=== PATIENT | female | born 1975 | race Caucasian/White ===

== ENCOUNTER 2019-02-12 13:11 | Emergency (ER) | payer SELFPAY ==
[2019-02-12 13:12] VITALS: BP 98/82; PULSE 75; RESP 17; TEMP 36.6; O2SAT 100; BMI 34.0
--- NOTE | 2019-02-12 14:41 | ED.VIS.GEN ---
History of Present Illness Chief Complaint: Back Narrative: 44-year-old female with a history of the chronic back pain presenting with a flareup of her chronic pain. She was going down steps yesterday and essentially slipped but did not actually strike her back, she just twisted and felt a pulling sensation in the left lumbar region. It has been radiating down her left buttock. She has a history of sciatica and this feels similar. She denies any direct trauma to the area. She denies bowel bladder dysfunction. Denies groin paresthesias. Denies lower extremity weakness. Onset of pain was sudden. Severity is moderate. It is worse with certain positions and bending forward. Past Medical History Primary Care Physician: Care Physician,No Primary [Primary Care Provider] - Prior records reviewed: Yes Review of Systems General: Denies: Chills, Fever, Sweats Eyes: Denies: Visual changes - bilaterally, Diplopia ENT: Denies: Rhinorrhea, Sore throat Cardiovascular: Denies: Chest pain, Palpitations Respiratory: Denies: Dyspnea, Cough, Dyspnea on exertion Gastrointestinal: Denies: Abdominal pain, Nausea, Vomiting, Diarrhea, Melena, Hematochezia Genitourinary: Denies: Dysuria, Hematuria, Frequency Musculoskeletal: Reports: Back pain. Denies: Extremity Pain Skin: Denies: Rash, Wounds Neurological: Denies: Headache, Weakness, Numbness Physical Exam Vital Signs/Narrative: Vital Signs Temp Pulse Resp BP Pulse Ox 02/12/19 13:12 97.9 F 75 17 98/82 H 100 General: Well nourished, Well developed, No Acute Distress Head: Normocephalic, Atraumatic Eyes: Perrl, EOMI ENT: Moist mucous membranes, No rhinorrhea Neck: Supple, Nontender Cardiovascular: Regular rate, Regular rhythm, No murmurs Respiratory: No distress, CTA bilaterally, Chest nontender Abdomen: Soft, Nontender, Nondistended, Normal bowel sounds Back: Normal Inspection, - - She does have mild paraspinal lumbar tenderness on the left. No midline tenderness, erythema, or fluctuance. Extremities: Nontender, No edema Skin: Normal color, No rash Neurological: Alert, Oriented x3, Cranial nerves II-XII grossly intact, Normal Strength, Normal Sensation Psychological: Normal affect, Normal Mood Diagnostic/Tx/Re-eval - Medical Decision Making She has no midline tenderness, erythema, or fluctuance to suggest paraspinal or epidural abscess. No abdominal tenderness. No lower extremity weakness. No groin paresthesias. Reflexes are normal and symmetric. Negative Babinski's. No clonus. She can ambulate without difficulty. Her blood pressure was slightly low on arrival but she denies feeling lightheaded and denies symptoms of infection. She was medicated here and feels much better. Red flag symptoms were explained. She was discharged in stable condition. ED Disposition - Plan for ED Patient: Disposition: Home or Assisted Living Instructions: BACK PAIN (Acute or Chronic) Prescriptions: MethylPREDNISolone DosePak [Medrol DosePak] 4 mg PO UD #1 box Naproxen [Naprosyn] 500 mg PO BID #14 tablet Tizanidine HCl [Zanaflex] 4 mg PO TID #20 tablet Referrals: Care Physician,No Primary [Primary Care Provider] -
[2019-02-12] MEDS: morphine 8 MG/ML Syringe 6 MG IM (14:51)
== END 2019-02-12 15:28 | disposition home or self-care (01) ==
LOC: ED 15:19
PROVIDERS: Emergency Provider Emergency Medicine
DX: M54.5 Low back pain (principal); G89.29 Other chronic pain
CPT/HCPCS: 96372; 99282

== ENCOUNTER 2023-06-22 21:13 | Emergency (ER) | payer OTHER, SELFPAY ==
[2023-06-22 21:14] VITALS: BP 136/102; PULSE 84; RESP 16; TEMP 36.4; O2SAT 100; BMI 34.3
--- NOTE | 2023-06-22 21:36 | EDS_ITS ---
HPI History of Present Illness Chief Complaint: Eye Problem Detail of Chief Complaint: Foreign body and discomfort right eye. 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 Today was standing a table and think she got sawdust or something in her right eye. Prior similar symptoms: Yes Recent Illness/Hospitalization: No PFSH PFSH Home Medications methylprednisolone 4 mg tablets in a dose pack 4 mg PO UD ##1 02/12/19 [Rx Last Taken Unknown] naproxen 500 mg tablet 500 mg PO BID #14 tabs 02/12/19 [Rx Last Taken Unknown] tizanidine 4 mg tablet 4 mg PO TID #20 tabs 02/12/19 [Rx Last Taken Unknown] Allergy/AdvReac Type Severity Reaction Status Date / Time [facility] Allergy Mild Hives Verified 06/22/23 21:17 Social History Smoking Status: Current every day smoker ROS ROS ED ROS Narrative Denies recent illness. Review of Systems ROS Unobtainable: Denies due to encephalopathy Constitutional Constitutional ED: Denies chills or fever(s) Eyes Eyes: Denies blurry vision ENT ENT ED: Denies ear pain Cardiovascular Cardiovascular: Denies chest pain Respiratory/Chest Respiratory/Chest: Denies cough or dyspnea Gastrointestinal Gastrointestinal: Denies abdominal pain Genitourinary Genitourinary ED: Denies dysuria or hematuria Musculoskeletal Musculoskeletal: Denies arthralgias Integumentary Denies abscess Neurologic Neurologic: Denies headache(s) Psychiatric Psychiatric: Denies anxiety Endocrine Endocrinology: Denies polydipsia Hematologic/Lymphatic Hematologic/Lymphatic: Denies easy bleeding or easy bruising Allergic/Immunologic Allergic/Immunologic ED: Denies mouth swelling, tongue swelling or urticaria EXAM Physical Exam Narrative Exam Narrative: 48-year-old female no acute distress vital signs stable afebrile. Blood pressure elevated 136/102. Most likely secondary to right eye pain. H EENT exam extra motions are intact. Right eye is injected. She is blind in the left. Upper and lower lids of the right eye are normal. Increased tearing right eye. No discharge. No orbital or periorbital cellulitis. No proptosis. She is able to see out of her right eye. She does have photophobia. Slit-lamp exam of the right eye after tetracaine which resolved her pain and fluorescein drops that she has a corneal abrasion on the iris of the right eye medially be tween 3 and 6:00. I do not see any foreign body at this time. I do not see any ulceration. There is no globe rupture. Lungs clear. Heart regular rhythm. Abdomen soft. Moving all 4 extremities. Awake and alert. Const Vital Signs: 06/22/23 21:14 Temperature 97.5 F L Temperature Source Temporal Pulse Rate 84 Respiratory Rate 16 Blood Pressure 136/102 H Blood Pressure Mean 113 Pulse Ox 100 Oxygen Delivery Method Room Air Positive well nourished and well developed; Negative for cachectic, contractures or unkempt General Appearance ED: well developed and NAD; Negative for unkempt, cachectic or contractures Nutritional Appearance: Negative for cachectic HEENT HEENT Narrative: Right eye watering. Corneal abrasion between 3 and 6:00 on the iris of the righ t eye. Injected. No foreign body. atraumatic; Negative for trauma or tenderness Nose: external nose normal Neck no lymphadenopathy, supple and no JVD General: Negative for tenderness Resp normal respiratory effort, no retractions, no use of accessory muscles and clear to auscultation bilaterally Cardio regular rate, regular rhythm, S1 normal heart sound, S2 normal heart sound and no murmurs GI non-tender, non-distended and no masses Inspection: Negative for other Auscultation: normoactive bowel sounds Palpation: soft Extremity normal to inspection General Extremety ED: Negative for edema or other findings General Extremity: Negative for edema or other findings Neuro oriented x3 and moves all extremities Neuro Narrative: Blind in left eye. Sensorium / Orientation: alert, oriented to person, oriented to place and oriented to time Motor Exam: strength 5/5 throughout Psych Appearance: Negative for unkempt Attitude: No agitated Mood & Affect: Negative for depressed, anxious or tearful Skin no wounds Lesions: no lesions Rashes: no rashes Image ED - Eye Diagram: 1. Corneal abrasion right eye medial aspect between 3 and 6:00 on the iris. MDM MDM MDM Narrative Medical decision making narrative: 48-year-old foreign body sensation right eye is a corneal abrasion. Treated with bacitracin. Tetracaine for pain for next 24 hours. Sunglasses to prevent glare. Follow-up with ophthalmology if not improving. Return if worse. History & Record Review Discussion w/independent historian: Patient Discharge Plan Triage Chief Complaint: Eye Problem ED Provider: Raul Suresh Dx/Rx/DC Orders Clinical Impression: Corneal abrasion, Blind left eye Instructions: ED Corneal Abrasion Prescriptions: No Action methylprednisolone 4 MG tablets,dose pack 4 mg PO UD Qty: 1 0RF naproxen 500 MG tablet 500 mg PO BID Qty: 14 0RF tizanidine 4 MG tablet 4 mg PO TID Qty: 20 0RF Primary Care Provider: Care Physician,No Primary Referrals: Deep Henry MD [Med Staff - Active Staff] - 3-5 Days if not improving Care Physician,No Primary [Primary Care Provider] - Activity Restrictions/Additional Instructions: Sunglasses to prevent glare. Motrin and Tylenol for pain. Use the eyedrops to the right eye 2 drops every 1-2 hours as needed for pain. He can only use them for the next 24 hours or they retard healing. So do not use them after Friday night at midnight. Eye ointment 3 times a day to the right eye. This will prevent infection. Help lubricate the eye. Follow-up with the eye doctor at [facility] if not improving.
--- OUTSIDE RECORDS SUMMARY | 2023-06-22 21:44 | XMS RPT_ITS | CCD ---
Author Name Unknown Address [address] [place] [address] Organization [facility] Results Test Name Value Interpretation Reference Range Facil ity Summary Purpose Family History No Family History Records Found Advance Directives No Advanced Directives Records Found Additional Source Comments INFORMATION SOURCE (unrecogn ized section and content) FOR RECORDS PERTAINING TO PATIENTS WHO ARE OR HAVE BEEN ENROLLED IN A CHEMICAL DEPENDENCY/SUBSTANCEABUSE PROGRAM, SOME INFORMATION MAY BE OMITTED. This clinical summary was aggregated from multiple sources. Caution should be exercised in using it in the provision of clinical care. This summary normalizes information from multiple sources, and as a consequence, information in this document may materially change the coding, format and clinical context of patient data. In addition, data may be omitted in some cases. CLINICAL DECISIONS SHOULD BE BASED ON THE PRIMARY CLINICAL RECORDS. [employer] provides no warranty or guarantee of the accuracy or completeness of information in this document.
[2023-06-22] MEDS: Neomycin/Bacitracin/Polymyxin Opth. Ointment 1 APPLIC RIGHT EYE (21:50)
[2023-06-22] MEDS: Tetracaine 0.5% Ophthalmic Bottle 1 DRP RIGHT EYE (21:51)
[2023-06-22] MEDS: Fluorescein 1 MG STRIP 1 STRIP RIGHT EYE (21:52)
== END 2023-06-22 21:55 | disposition home or self-care (01) ==
LOC: ED 21:41
PROVIDERS: Emergency Provider Emergency Medicine; Visit Provider Emergency Medicine
DX: S05.01XA Injury of conjunctiva and corneal abrasion without foreign body, right eye, initial encounter (principal); F17.200 Nicotine dependence, unspecified, uncomplicated; H54.8 Legal blindness, as defined in USA; X58.XXXA Exposure to other specified factors, initial encounter
CPT/HCPCS: 99283; A4216

== ENCOUNTER 2023-06-26 02:32 | Emergency (ER) | payer SELFPAY ==
[2023-06-26 02:33] VITALS: BP 156/86; PULSE 83; RESP 20; TEMP 35.9; O2SAT 99; BMI 43.9
--- NOTE | 2023-06-26 02:38 | EX.ED.VIS.EY ---
HPI History of Present Illness Chief Complaint: Eye Problem Informant: patient Onset/Context/Timing Location: Right Eye Onset: Hours (1) Context: Sudden Onset Timing: Continuous Current Severity: Severe Maximum Severity: Severe Narrative Narrative: Patient seen here couple days ago because she was sanding wood and got a piece in her right eye. She was diagnosed with a corneal abrasion and given bacitracin ophthalmic ointment, she states she has been doing that and the eye was feeling better until tonight about an hour ago when it suddenly became much worse, severe pain, unable to open her eye and sensitive to light. Chronically blind in her left eye since . Has not followed up with ophthalmology because she thought things were getting better. PFSH PFS Home Medications methylprednisolone 4 mg tablets in a dose pack 4 mg PO UD ##1 02/12/19 [Rx Last Taken Unknown] naproxen 500 mg tablet 500 mg PO BID #14 tabs 02/12/19 [Rx Last Taken Unknown] tizanidine 4 mg tablet 4 mg PO TID #20 tabs 02/12/19 [Rx Last Taken Unknown] Allergy/AdvReac Type Severity Reaction Status Date / Time [facility] Allergy Mild Hives Verified 06/22/23 21:17 Surgical History History of appendectomy History of cholecystectomy Social History Smoking Status: Current every day smoker tobacco type: cigarettes ROS ROS ED Constitutional Constitutional ED: Denies chills or fever(s) Eyes Eyes: Reports as per HPI and eye pain ENT ENT ED: Denies ear pain, rhinorrhea or sore throat Neurologic Neurologic: Denies headache(s), paresthesias or weakness EXAM Physical Exam Const Vital Signs: 06/26/23 02:33 Temperature 96.6 F L Temperature Source Temporal Pulse Rate 83 Respiratory Rate 20 H Blood Pressure 156/86 H Blood Pressure Mean 109 Pulse Ox 99 Oxygen Delivery Method Room Air Positive well nourished and well developed General Appearance ED: well developed and NAD HEENT atraumatic; Negative for tenderness Mouth ED: Yes oral and palatal mucosa normal and Yes lips normal Mouth: oral and palatal mucosa normal and lips normal Eyes PERRL and EOMs intact bilaterally Eyes Narrative: Diffuse bulbar conjunctival injection. No periorbital swelling but there is diffuse periorbital erythema including the eyelids, patient holding a pack against her eye difficulty letting go of it. After treated with tetracaine, she was much improved and reevaluated. She has new diffuse upper corneal horizontal abrasion that does not appear to be documented before. The other abrasion that was documented several days ago appears to be healing and barely has any dye uptake. Negative Mery sign. No chemosis. No corneal laceration or ulceration seen. The cornea was viewed under slit lamp with and without fluorescein dye staining. The anterior chamber is deep and quiet-appearing. Neuro oriented x3, CN's II-XII intact bilaterally and gait normal Sensorium / Orientation: alert Psych Mood & Affect: anxious Skin Lesions: no lesions Rashes: no rashes Image ED - Eye Diagram: 1. Acute Abrasion MDM MDM MDM Narrative Medical decision making narrative: Slit-lamp exam was performed see above. Tetracaine was placed and really helped her blepharospasm we were able to perform slit-lamp examination afterwards, significant relief of her pain. There is no tenderness in the erythema around her I think this is from holding it tightly, she states that placing the bacitracin ointment she was given in the ER several days ago was making her get swelling soon afterwards and sometimes some itching. She may be having an allergic reaction to that so I am giving her a different ointment. I everted her upper eyelid. She has a posterior-pointing lesion away from the lid margin that is white-yellow consistent with a hordeolum internum. This is not very visible from the external aspect of the lid which is not appearing significantly swollen, and this lesion may be responsible for what appears to be new upper corneal abrasion. She was given a couple more drops of tetracaine prior to discharge, erythromycin ointment for use, advised to discard the bacitracin and no longer use it, she has a few tetracaine drops to use at home she did not use it for very many uses and definitely less than 24 hours before as she was previously instructed which I gave her those instructions again. Advised to seek follow-up with ophthalmology to the provider she was advised before. Discharge Plan Triage Chief Complaint: Eye Problem ED Provider: Prasad Khan Dx/Rx/DC Orders Clinical Impression: Hordeolum internum of right upper eyelid, Corneal abrasion Prescriptions: No Action methylprednisolone 4 MG tablets,dose pack 4 mg PO UD Qty: 1 0RF naproxen 500 MG tablet 500 mg PO BID Qty: 14 0RF tizanidine 4 MG tablet 4 mg PO TID Qty: 20 0RF Primary Care Provider: Care Physician,No Primary Referrals: Deep Henry MD [Med Staff - Active Staff] - As soon as possible Activity Restrictions/Additional Instructions: May use the anesthetic tetracaine drops that you have at home for no more than 24 hours so as not to limit healing of the cornea. This will help with pain though in the short-term and is safe. Use the new antibiotic ointment erythromycin 3 times daily, small ribbon to the right lower eyelid and blink it in, and discard the old one bacitracin. Make an appointment with ophthalmology for follow-up. Disposition Disposition: Home, Self Care
--- OUTSIDE RECORDS SUMMARY | 2023-06-26 02:56 | XMS RPT_ITS | CCD ---
Author Name Unknown Address [address] [place] [address] Organization [facility] Results Test Name Value Interpretation [...] BE BASED ON THE PRIMARY CLINICAL RECORDS. [employer] provides no warranty or guarantee of the accuracy or completeness of information in this document.
[2023-06-26] MEDS: Erythromycin Base 1 OPTH.TUBE 1 APPLIC RIGHT EYE (03:07)
[2023-06-26] MEDS: Fluorescein 1 MG STRIP 1 STRIP RIGHT EYE (03:09)
[2023-06-26] MEDS: Tetracaine 0.5% Ophthalmic Bottle 3 DRP RIGHT EYE (03:09)
== END 2023-06-26 03:18 | disposition home or self-care (01) ==
PROVIDERS: Emergency Provider Emergency Medicine; Visit Provider Emergency Medicine
DX: S05.01XA Injury of conjunctiva and corneal abrasion without foreign body, right eye, initial encounter (principal); H00.021 Hordeolum internum right upper eyelid; F17.210 Nicotine dependence, cigarettes, uncomplicated; W44.8XXA Other foreign body entering into or through a natural orifice, initial encounter
CPT/HCPCS: 99282